=== PATIENT | female | born 1995 | race Caucasian/White ===

== ENCOUNTER → 2019-03-11 | Outpatient (CLI) | payer OTHER ==
[~2019-03-11] MED LIST: ALBUTEROL0.09 MG/A1 INH; AMOXICILLIN500 M2 PO; BACTRIM DS 8001 TA1 PO; BREO ELLIPTA 11 EACH IH; CETIRIZINE HYDR10 MG PO; DEPO PROVER150 MG/M1 IM; DOXYCYCLINE100 M3 PO; FLOVENT0.044 MG/A IH; Flovent 220 M220 MCG INH; HYDROCODONE BIT1 T11 PO; LEVAQUIN750 M1 PO; LIDEX 0.05% CRE15 GM T; LIDEX0.05% T; MAGNESIUM OXID400 MG PO; MEDROL DOSEPAK4 MG PO; METFORMIN500 MG PO; MINASTRIN 24 F1 EACH PO; MULTIVITAMIN FO1 CAP PO; NORTREL 35 MCG-1 TAB PO; NORVASC10 MG PO; OMEPRAZOLE20 M2 PO; Oscal,Oyster S500 MG PO; PAROXETINE20 MG PO; PENICILLIN-VK500 M1 PO; PREDNICOT20 MG PO; PREDNISONE10 MG PO; SINGULAIR10 MG PO; SPRINTEC 35 MCG1 TA1 PO; TOPROL XL200 MG PO; TRAZODONE100 MG PO; VENTOLIN H0.09 MG/AC IH; VENTOLIN0.09 MG/AC IH; VISTARIL50 MG PO; ZANTAC 150150 MG PO; ZOLOFT100 MG PO
== END | disposition home or self-care (01) ==
LOC: US 12:52
DX: N83.292 Other ovarian cyst, left side (principal); Z90.721 Acquired absence of ovaries, unilateral

== ENCOUNTER → 2019-09-24 | Outpatient (CLI) | payer OTHER | END | disposition home or self-care (01) | LOC: US 11:25 | DX: N83.202 Unspecified ovarian cyst, left side (principal) ==

== ENCOUNTER 2020-09-23 10:31 | Emergency (ER) | payer OTHER ==
[~2020-09-23] VITALS: Ht 165.1 cm; Wt 97.5 kg
[2020-09-23 10:35] VITALS: BP 154/94
== END 2020-09-23 12:10 | disposition home or self-care (01) ==
LOC: ED 10:31
DX: S90.32XA Contusion of left foot, initial encounter (principal); M25.572 Pain in left ankle and joints of left foot; Z79.899 Other long term (current) drug therapy; Z79.2 Long term (current) use of antibiotics; Z90.89 Acquired absence of other organs; X50.1XXA Overexertion from prolonged static or awkward postures, initial encounter; Y93.01 Activity, walking, marching and hiking; Y92.89 Other specified places as the place of occurrence of the external cause; Y99.8 Other external cause status

== ENCOUNTER → 2021-03-22 | Outpatient (CLI) | payer OTHER | END | disposition home or self-care (01) | LOC: US 14:53 | PROVIDERS: ATTEND Nurse Practitioner Family | DX: E04.1 Nontoxic single thyroid nodule (principal) ==